=== PATIENT | female | born 1955 | race Caucasian/White ===

== ENCOUNTER 2017-03-15 12:11 | Emergency (ER) | payer SELFPAY ==
[2017-03-15 12:21] VITALS: BMI 24.2
[2017-03-15 12:24] VITALS: RESP 18; TEMP 98.4
[2017-03-15] MEDS ORDERED: Sodium Chloride 0.9% 1,000 ML IV STA (12:44)
[2017-03-15 12:54] LABS: BASO # 0.03 K/mm3 (0.0-2.0); BASO % 0.5 % (0.0-3.0); EOS # 0.1 (0.0-0.7); EOS % 1.1 % (1.5-5.0); GRAN # 2.14 (1.4-6.5); GRAN % 33.4 % (50.0-68.0); HEMATOCRIT 35.8 % (36.0-48.0); LYMPH # 3.8 (1.2-3.4); LYMPH % 59.4 % (22.0-35.0); MEAN CELL VOLUME 78.7 fl (80.0-105.0); MEAN CORPUSCULAR HEMOGLOBIN 25.9 pg (25.0-35.0); MEAN PLATELET VOLUME 9.6 fl (7.0-11.0); MONO # 0.4 (0.1-0.6); MONO % 5.6 % (1.0-6.0); RED CELL DISTRIBUTION WIDTH 14.8 % (11.5-14.5); WHITE BLOOD COUNT 6.4 10^3/ul (4.5-11.0)
[2017-03-15 12:59] LABS: ALB/GLOB RATIO 1.4 (1.1-1.8); ALKALINE PHOSPHATASE 63 U/L (38-126); ALT/SGPT 26 U/L (7-56); AST/SGOT 20 U/L (14-36); BILIRUBIN,TOTAL 0.3 mg/dL (0.2-1.3); BLOOD UREA NITROGEN 10 mg/dL (7-21); CARBON DIOXIDE 30 mmol/L (21-33); CHLORIDE 105 mmol/L (98-107); GFR AFRICAN-AMERICAN > 60; GLUCOSE,RANDOM 121 mg/dL (70-110); INR 1.02 (0.93-1.08); PARTIAL THROMBOPLASTIN TIME 22.6 Seconds (23.7-30.8); POTASSIUM 3.5 mmol/L (3.6-5.0); SODIUM 144 mmol/L (132-148); TOTAL PROTEIN 7.3 g/dL (5.8-8.3)
--- NOTE | 2017-03-15 13:05 | RAD ---
HISTORY: syncope COMPARISON: No prior. FINDINGS: LUNGS: No active pulmonary disease. PLEURA: No significant pleural effusion identified, no pneumothorax apparent. CARDIOVASCULAR: Normal. OSSEOUS STRUCTURES: No significant abnormalities. VISUALIZED UPPER ABDOMEN: Normal. OTHER FINDINGS: None. IMPRESSION: No active disease.
[2017-03-15] MEDS ORDERED: Potassium Chloride 20 mEq ER Tab PO STA (13:09)
--- NOTE | 2017-03-15 13:11 | ED PDOC ---
Arrival/HPI - General Chief Complaint: Syncope Time Seen by Provider: 03/15/17 12:12 Historian: Patient - History of Present Illness Narrative History of Present Illness (Text): 03/15/17 12:56 61 year old female, whose past medical history includes hyperlipidemia and hypothyroidism, presents to the emergency department complaining of a witnessed syncope episode. Patient reports she was standing in the kitchen and became to feel dizzy with both a spinning and lightheaded sensation. Patient left the kitchen and went to sit outside and reports she passed out. Witnesses tried opening her eyes and she was staring, but was able to come around. No seizure activity was noted. She also reports that her pharmacy stopped sending her synthroid to her 6 months ago, and she never followed up with a md or obtain further refills. Patient states to have mild lightheadedness and general weakness, but denies any focal weakness, fever, chills, chest pain, shortness of breath, nausea, vomiting, diarrhea, urinary symptoms, back pain, neck pain, or any other complaints. PMD: Dr. Hart Time/Duration: Other (today) Symptom Onset: Gradual Symptom Course: Unchanged Activities at Onset: Light Context: Other (Yazidism) Past Medical History - Provider Review Nursing Documentation Reviewed: Yes - Infectious Disease Hx of Infectious Diseases: None - Cardiac Hx Cardiac Disorders: Yes Hx Hypertension: Yes - Pulmonary Hx Respiratory Disorders: Yes Hx Asthma: Yes - Neurological Hx Neurological Disorder: No - HEENT Hx HEENT Disorder: No - Renal Hx Renal Disorder: No - Endocrine/Metabolic Hx Endocrine Disorders: Yes Hx Hyperthyroidism: Yes - Hematological/Oncological Hx Blood Disorders: No - Integumentary Hx Dermatological Disorder: No - Musculoskeletal/Rheumatological Hx Musculoskeletal Disorders: No - Gastrointestinal Hx Gastrointestinal Disorders: No - Genitourinary/Gynecological Hx Genitourinary Disorders: No - Psychiatric Hx Psychophysiologic Disorder: No Hx Substance Use: No - Anesthesia Hx Anesthesia: No Hx Anesthesia Reactions: No Hx Malignant Hyperthermia: No Family/Social History - Physician Review Nursing Documentation Reviewed: Yes Family/Social History: No Known Family HX Smoking Status: Never Smoked Hx Alcohol Use: No Hx Substance Use: No Allergies/Home Meds Allergies/Adverse Reactions: Allergies No Known Allergies Allergy (Verified 03/15/17 12:21) Home Medications: Home Meds Medication Instructions Recorded Confirmed Levothyroxine [Levoxyl] 0.025 mg PO DAILY 08/10/16 03/15/17 Review of Systems - Physician Review All systems were reviewed & negative as marked: Yes - Review of Systems Constitutional: absent: Fevers, Other (Chills) Respiratory: absent: SOB Cardiovascular: Syncope. absent: Chest Pain Gastrointestinal: absent: Diarrhea, Nausea, Vomiting Genitourinary Female: absent: Dysuria, Frequency, Hematuria Musculoskeletal: absent: Back Pain, Neck Pain Neurological: Other (mild lightheadedness and general weakness). absent: Focal Weakness Physical Exam Vital Signs Reviewed: Yes Vital Signs Temp Pulse Resp BP Pulse Ox 03/15/17 13:41 61 18 103/65 100 03/15/17 12:24 98.4 F 56 L 18 101/68 96 Temperature: Afebrile Blood Pressure: Normal Pulse: Bradycardic Respiratory Rate: Normal Appearance: Positive for: Well-Appearing, Non-Toxic, Comfortable Pain Distress: None Mental Status: Positive for: other (Somnolent and oriented X 3) Finger Stick Blood Glucose: 140 - Systems Exam Head: Present: Atraumatic, Normocephalic Pupils: Present: PERRL Extroacular Muscles: Present: EOMI Conjunctiva: Present: Normal Mouth: Present: Moist Mucous Membranes Pharnyx: Present: Normal. No: ERYTHEMA, EXUDATE Neck: Present: Normal Range of Motion Respiratory/Chest: Present: Clear to Auscultation, Good Air Exchange. No: Respiratory Distress, Accessory Muscle Use Cardiovascular: Present: Normal S1, S2, Bradycardic. No: Murmurs Abdomen: Present: Normal Bowel Sounds. No: Tenderness, Distention, Peritoneal Signs Back: Present: Normal Inspection Upper Extremity: Present: Normal Inspection, Normal ROM. No: Cyanosis, Edema Lower Extremity: Present: Normal Inspection, Normal ROM. No: Edema Neurological: Present: GCS=15, CN II-XII Intact, Speech Normal, Motor Func Grossly Intact, Normal Sensory Function, Normal Cerebellar Funct, Norm Deep Tendon Reflexes, Gait Normal, Memory Normal, Normal 2Pt Descrimination Skin: Present: Warm, Dry, Normal Color. No: Rashes Psychiatric: Present: Alert, Oriented x 3, Normal Insight, Normal Concentration Medical Decision Making ED Course and Treatment: 03/15/17 12:56 Impression: 61 year old female presents complaining of a witnessed syncope episode today. Differential: vasovagal vs electrolyte abnormality vs cardiogenic vs neurogenic Plan: -- EKG -- Labs -- [K-Dur 20 mEq ER Tab] -- Urinalysis -- Reassess and disposition Prior Visits: Notes and results from previous visits were reviewed. On 08/10/16 patient came in complaining of bilateral lower back pain for 3 days. Progress Notes: EKG shows Sinus Bradycardia at 54 BPM with normal intervals and axis. No ST/T changes. Interpreted by me. PROCEDURE: Chest X-ray Dictator: Patrick Owens MD Report Date : 03/15/2017 13:04:17 IMPRESSION: No active disease. 03/15/17 14:10 Patient with syncopal episode with mild bradycardia; labs showing elevated TSH, likely due to hypothyroidism, but otherwise nondiagnostic. The patient's etiology of syncope is unknown and needs further observation on tele for further evaluation, but she says she has to go home to take her of a sick who is unable to take care of himself. She is doing this despite being told of the possible risks of leaving without workup and treatment, including heart attack, permanent disability, , or other undiagnosed pathology. Patient is instead choosing to leave against medical advice, understanding risks and benefits. This conversation was had with her in Sinhala, so she fully understood the risks and benefits and the possible ramifications of her decision. - Lab Interpretations Lab Results: 03/15/17 12:43 03/15/17 12:43 Lab Results 03/15/17 12:47: Free T4 0.94, TSH 3rd Generation 15.20 H 03/15/17 12:47: Lipase 79 03/15/17 12:43: Sodium 144, Potassium 3.5 L, Chloride 105, Carbon Dioxide 30, Anion Gap 13, BUN 10, Creatinine 0.8, Est GFR ( Amer) > 60, Est GFR (Non- Af Amer) > 60, Random Glucose 121 H, Calcium 9.0, Total Bilirubin 0.3, AST 20, ALT 26, Alkaline Phosphatase 63, Lactate Dehydrogenase 368, Total Creatine Kinase 47, Troponin I < 0.01, Total Protein 7.3, Albumin 4.2, Globulin 3.1, Albumin/Globulin Ratio 1.4 03/15/17 12:43: PT 11.0, INR 1.02, APTT 22.6 L 03/15/17 12:43: WBC 6.4 D, RBC 4.55, Hgb 11.8 L, Hct 35.8 L, MCV 78.7 L, MCH 25.9, MCHC 33.0, RDW 14.8 H, Plt Count 301, MPV 9.6, Gran % 33.4 L, Lymph % ( Auto) 59.4 H, Tate % (Auto) 5.6, Eos % (Auto) 1.1 L, Baso % (Auto) 0.5, Gran # 2.14, Lymph # 3.8 H, Tate # 0.4, Eos # 0.1, Baso # 0.03 03/15/17 12:16: POC Glucose (mg/dL) 140 H I have reviewed the lab results: Yes - RAD Interpretation Radiology Orders: 03/15/17 12:42 CHEST PORTABLE [RAD] Stat - EKG Interpretation Interpreted by ED Physician: Yes Type: 12 lead EKG - Medication Orders Current Medication Orders: Discontinued Medications Sodium Chloride (Sodium Chloride 0.9%) 1,000 mls @ 999 mls/hr IV .Q1H1M STA Stop: 03/15/17 13:44 Last Admin: 03/15/17 12:45 Dose: 999 mls/hr eMAR Start Stop Document 03/15/17 12:45 GMD (Rec: 03/15/17 12:46 GMD [facility] [place]-[id number][place] Intravenous Solution Start Date 03/15/17 Start Time 12:45 End Date 03/15/17 End time 13:46 Total Infusion Time 61 Potassium Chloride (K-Dur 20 Meq Er Tab) 40 meq PO STAT STA Stop: 03/15/17 13:10 Last Admin: 03/15/17 13:19 Dose: 40 meq - Scribe Statement The provider has reviewed the documentation as recorded by the Jonathonibvitor Roa All medical record entries made by the Jonathonibvitor were at my direction and personally dictated by me. I have reviewed the chart and agree that the record accurately reflects my personal performance of the history, physical exam, medical decision making, and the department course for this patient. I have also personally directed, reviewed, and agree with the discharge instructions and disposition. Disposition/Present on Arrival - Present on Arrival Any Indicators Present on Arrival: No History of DVT/PE: No History of Uncontrolled Diabetes: No Urinary Catheter: No History of Decub. Ulcer: No History Surgical Site Infection Following: None - Disposition Have Diagnosis and Disposition been Completed?: Yes Diagnosis: Syncope, Hypothyroidism Disposition: AGAINST MEDICAL ADVICE Disposition Time: 14:05 Patient Plan: Other (AMA) Condition: UNKNOWN Discharge Instructions (ExitCare): Syncope (ED) Additional Instructions: You are leaving against medical advice and may return to the emergency department at any time. If you choose not to do so, make sure you follow up in the medical clinic as soon as possible. You need to be started on medication for your thyroid and followed outpatient as well as obtain further workup to see why you passed out. Referrals: [facility] at [facility] [place] [Outside] - Follow up with primary Forms: [employer] (I[place]ic)
[2017-03-15 13:13] LABS: TROPONIN I < 0.01 ng/mL
[2017-03-15 13:15] LABS: FREE T4 0.94 ng/dL (0.78-2.19)
[2017-03-15 13:29] LABS: THYROID STIMULATING HORMONE 15.2 mIU/mL (0.46-4.68)
[2017-03-15 13:42] VITALS: BP 103/65; PULSE 61; O2SAT 100
--- NOTE | 2017-03-16 12:24 | CARD ---
APPROVED REPORT EKG Measurement Heart [id number] <Conclusion> Sinus bradycardia Otherwise normal ECG
== END 2017-03-15 14:10 | disposition left against medical advice (07) ==
LOC: ED 12:11
DX: R55 Syncope and collapse (principal); E03.9 Hypothyroidism, unspecified; E78.5 Hyperlipidemia, unspecified; I10 Essential (primary) hypertension
CPT/HCPCS: 71010; 80053; 82550; 82948; 83615; 83690; 84439; 84443; 84484; 85025; 85610; 85730; 93005; 96360; 99285; J7040

== ENCOUNTER 2018-07-05 14:03 | Outpatient (CLI) | payer SELFPAY | END 2018-07-05 14:04 | disposition home or self-care (01) | LOC: LAB 14:03 ==